=== PATIENT | female | born 1955 | race Caucasian/White ===

== ENCOUNTER 2018-03-03 13:10 | Outpatient (CLI) | payer OTHER ==
--- NOTE | 2018-03-03 13:59 | RAD ---
FRONTAL VIEW CHEST: COMPARISON: 02/05/2018. INDICATION: J18.1, history of pneumonia. FINDINGS: There is a patchy area of consolidation at the right lower lung zone indicating residua from a previo usly documented right middle lobe pneumonia. This has decreased in confluence since the prior exam. No effusion. Cardiac silhouette is stable. There is a mild linear density laterally at the left lo wer lung zone which may relate to atelectasis. IMPRESSION: Mild residua from previously documented right middle lobe pneumonia. No associated pleural fluid. POS: [facility]
== END 2018-03-03 13:11 | disposition home or self-care (01) ==
LOC: SCSRAD 13:10
PROVIDERS: ATTEND Family Medicine
DX: J18.1 Lobar pneumonia, unspecified organism (principal)
CPT/HCPCS: 71046